=== PATIENT | female | born 1970 | race Caucasian/White ===

== ENCOUNTER 2023-01-05 08:06 | Emergency (ER) | payer OTHER | END 2023-01-05 09:15 | disposition home or self-care (01) | LOC: VM.ED 08:06 | DX: R11.0 Nausea (principal); T42.6X5A Adverse effect of other antiepileptic and sedative-hypnotic drugs, initial encounter; Z88.0 Allergy status to penicillin; Z91.030 Bee allergy status; Z87.891 Personal history of nicotine dependence; Z79.899 Other long term (current) drug therapy | CPT/HCPCS: 99283 ==

== ENCOUNTER 2023-04-21 08:36 | Day surgery (SDC) | payer OTHER ==
[2023-04-21] MEDS: Lactated Ringers 1,000 ML IV SCH (09:03)
[2023-04-21] MEDS ORDERED: fentaNYL 100 MCG/2 ML SDV ONE (10:17)
[2023-04-21] MEDS ORDERED: Propofol 200 MG/20 ML SDV ONE ×2 (10:17→10:52)
== END 2023-04-21 12:35 | disposition home or self-care (01) ==
LOC: VM.SDS 08:36
PROVIDERS: ATTEND Student in an Organized Health Care Education/Training Program
DX: D12.8 Benign neoplasm of rectum (principal); K62.1 Rectal polyp; E66.9 Obesity, unspecified; Z86.010 Personal history of colon polyps; Z80.0 Family history of malignant neoplasm of digestive organs; Z68.39 Body mass index [BMI] 39.0-39.9, adult; Z79.899 Other long term (current) drug therapy; Z88.0 Allergy status to penicillin; Z91.013 Allergy to seafood; Z91.030 Bee allergy status; Z87.891 Personal history of nicotine dependence
CPT/HCPCS: 00811; J2704; J3010; J7120